=== PATIENT | female | born 1975 ===

== ENCOUNTER 2020-04-17 10:52 | Emergency (ER) | payer OTHER ==
[~2020-04-17] VITALS: Ht 157.5 cm; Wt 83.9 kg
[2020-04-17] MEDS ORDERED: KETO10TA2 PO (12:41)
== END 2020-04-17 12:49 | disposition home or self-care (01) ==
LOC: ER 10:52
DX: S93.522A Sprain of metatarsophalangeal joint of left great toe, initial encounter (principal); S83.412A Sprain of medial collateral ligament of left knee, initial encounter; X50.3XXA Overexertion from repetitive movements, initial encounter; Y93.89 Activity, other specified; Y92.89 Other specified places as the place of occurrence of the external cause; Y99.8 Other external cause status